=== PATIENT | female | born 1975 | race American Indian/Alaskan Native ===

== ENCOUNTER 2017-06-08 12:24 | Emergency (ER) | payer OTHER ==
[2017-06-08 12:51] VITALS: BP 137/98; PULSE 105; RESP 18; TEMP 97.9; O2SAT 100
--- NOTE | 2017-06-08 13:55 | C.PDOC ---
History Of Present Illness Patient is a 41 year old female, with no significant PMHx, presents to ED for evaluation of persistent vaginal bleeding for the past 5 months after receiving depo shot. Notes using 10 pads a day for the past several months. Pt states that bleeding stopped for 2 days last week, but returned again. Notes being seen by OBGYN several times in the past, who instructed pt to come to ER for further evaluation. Denies fever, n/v/d, chest pain, dyspnea, lightheadedness or any other complaints. Pt is requesting to be tested for STDs and HIV. Time Seen by Provider: 06/08/17 13:08 Chief Complaint (Nursing): Female Genitourinary History Per: Patient History/Exam Limitations: no limitations Onset/Duration Of Symptoms: Days Current Symptoms Are (Timing): Still Present Associated Symptoms: Back Pain. denies: Urinary Symptoms Alleviating Factors: None Recent travel outside of the [place]: No Additional History Per: Patient Abnormal Vaginal Bleeding: Yes Past Medical History Reviewed: Historical Data, Nursing Documentation, Vital Signs Vital Signs: Last Vital Signs Temp 97.9 F 06/08/17 12:50 Pulse 105 H 06/08/17 12:50 Resp 18 06/08/17 12:50 BP 137/98 H 06/08/17 12:50 Pulse Ox 100 06/08/17 14:06 Surgical History: Cholecystectomy Family History: States: Unknown Family Hx - Social History Hx Tobacco Use: Yes Hx Alcohol Use: No Hx Substance Use: No - Immunization History Hx Tetanus Toxoid Vaccination: No Hx Influenza Vaccination: No Hx Pneumococcal Vaccination: No Review Of Systems Except As Marked, All Systems Reviewed And Found Negative. Constitutional: Negative for: Fever, Chills Gastrointestinal: Negative for: Nausea, Vomiting, Abdominal Pain, Diarrhea Genitourinary: Positive for: Vaginal Bleeding. Negative for: Dysuria, Frequency Physical Exam - Physical Exam Additional Physical Exam Comments: Constitutional: No acute distress. Head: Normocephalic. Atraumatic. Eyes: PERRL. ENT: Moist mucous membranes. Neck: Supple. Cardiovascular: Regular rate. Radial pulse 2+ bilaterally. Chest: No tenderness. Respiratory: Clear to auscultation bilaterally. GI: Soft. Nontender. Nondistended. Back: No CVA tenderness. Musculoskeletal: No tenderness or swelling of extremities. Skin: No rash. Neurologic: Alert, no focal deficit. ED Course And Treatment O2 Sat by Pulse Oximetry: 100 (RA) Pulse Ox Interpretation: Normal Medical Decision Making Medical Decision Making: Plan: * Blood work * Urinalysis * Chlamydia/GC * Reassess Patient told ER staff member that she was leaving to go to work and walked out of the ED. Disposition - Disposition Disposition: ELOPEMENT - ER ONLY Disposition Time: 14:10 Condition: UNKNOWN Forms: [facility] (Latvian) - Clinical Impression Clinical Impression: Vaginal bleeding - Scribe Statement The provider has reviewed the documentation as recorded by the Scribe Kelly Dowd All medical record entries made by the Hillaryibbeatrice were at my direction and personally dictated by me. I have reviewed the chart and agree that the record accurately reflects my personal performance of the history, physical exam, medical decision making, and the department course for this patient. I have also personally directed, reviewed, and agree with the discharge instructions and disposition.
[2017-06-08 13:59] LABS: RBC URINE 109 /hpf (0-3); URINE BACTERIA OCC (<OCC); URINE BILIRUBIN NEGATIVE (NEGATIVE); URINE BLOOD 3+ (NEGATIVE); URINE COLOR Yellow (YELLOW); URINE GLUCOSE (UA) NORMAL (Normal); URINE KETONE NEGATIVE (NEGATIVE); URINE LEUKOCYTE ESTERASE NEG Leu/uL (Negative); URINE PROTEIN NEGATIVE (NEGATIVE); URINE UROBILINOGEN NORMAL mg/dL (0.2-1.0); WBC URINE 7 /hpf (0-5)
== END 2017-06-08 13:58 | disposition left against medical advice (07) ==
LOC: C.ER 12:24
DX: N93.9 Abnormal uterine and vaginal bleeding, unspecified (principal)

== ENCOUNTER 2017-06-09 15:39 | Emergency (ER) | payer OTHER ==
[2017-06-09 16:13] VITALS: BMI 33.3
[2017-06-09 16:16] VITALS: TEMP 98
[2017-06-09 16:17] VITALS: BP 118/80; PULSE 115; O2SAT 100
--- NOTE | 2017-06-09 17:48 | C.PDOC ---
History Of Present Illness 41 y/o female presents to ED with complaints of vaginal bleeding since last night. Notes that she was seen here last night for vaginal bleeding, but states bleeding still persists. Pt is requesting to be tested for HIV and STDs. Pt also complains of feet pain, admits to being evaluated by a replenishment analyst. Denies n /v/d, abdominal pain, or fever. Pt is requesting food, and juice. Time Seen by Provider: 06/09/17 17:19 Chief Complaint (Nursing): Lower Extremity Problem/Injury History Per: Patient History/Exam Limitations: no limitations Onset/Duration Of Symptoms: Days Current Symptoms Are (Timing): Still Present Recent travel outside of the [place]: No Additional History Per: Patient Past Medical History Reviewed: Historical Data, Nursing Documentation, Vital Signs Vital Signs: Last Vital Signs Temp 98 F 06/09/17 16:15 Pulse 115 H 06/09/17 16:15 Resp 18 06/09/17 16:15 BP 118/80 06/09/17 16:15 Pulse Ox 100 06/09/17 18:38 - Medical History PMH: HTN Surgical History: Cholecystectomy Family History: States: Unknown Family Hx - Social History Hx Tobacco Use: Yes Hx Alcohol Use: No Hx Substance Use: No - Immunization History Hx Tetanus Toxoid Vaccination: No Hx Influenza Vaccination: No Hx Pneumococcal Vaccination: No Review Of Systems Except As Marked, All Systems Reviewed And Found Negative. Constitutional: Negative for: Fever, Chills Gastrointestinal: Negative for: Nausea, Vomiting, Abdominal Pain, Diarrhea Genitourinary: Positive for: Vaginal Bleeding. Negative for: Dysuria, Frequency , Hematuria Musculoskeletal: Positive for: Foot Pain (b/l). Negative for: Back Pain Skin: Positive for: Other (callus) Neurological: Negative for: Weakness, Numbness Physical Exam - Physical Exam Appears: Non-toxic, No Acute Distress Skin: Normal Color, Warm, Dry Head: Atraumatic, Normacephalic Eye(s): bilateral: Normal Inspection Oral Mucosa: Moist Neck: Normal ROM, Supple Chest: Symmetrical Cardiovascular: Rhythm Regular, No Murmur Respiratory: Normal Breath Sounds, No Rales, No Rhonchi, No Wheezing Gastrointestinal/Abdominal: Soft, No Tenderness Back: Normal Inspection, No CVA Tenderness Extremity: Normal ROM, No Tenderness, No Pedal Edema, Capillary Refill (<2 secs. ), No Deformity, No Swelling, Other (2 calluses in b/l forefoot) Extremity: Bilateral: Painful To Bear Weight (callus plantar aspect both feet) Pulses: Left Dorsalis Pedis: Normal, Right Dorsalis Pedis: Normal Neurological/Psych: Oriented x3, Normal Speech, Normal Motor, Normal Sensation Gait: Steady ED Course And Treatment - Laboratory Results Result Diagrams: 06/09/17 17:58 06/09/17 17:58 Urine POC: Negative O2 Sat by Pulse Oximetry: 100 (RA) Pulse Ox Interpretation: Normal Progress Note: Blood work, UA, chlamydia/GC ordered and reviewed. Patient evaluated in ED yesterday for same problem. Patient eating at bedside requesting juice. On re-evaluation in no distress Reassessment Condition: Unchanged Disposition Counseled Patient/Family Regarding: Studies Performed, Diagnosis, Need For Followup, Rx Given - Disposition Referrals: Podiatry Clinic [Outside] [facility] [Outside] [facility] [Outside] Disposition: HOME/ ROUTINE Disposition Time: 18:40 Condition: STABLE Additional Instructions: Follow up with podiatry and LINING FOLDER for further evaluation Instructions: Foot Sprain (ED), Dysfunctional Uterine Bleeding (ED) Forms: [employer] (Khmer) - POA Present On Arrival: None - Clinical Impression Clinical Impression: Callus of foot, Vaginal bleeding - PA / SUPERVISOR [employer] / Resident Statement MD/DO has reviewed & agrees with the documentation as recorded. - Scribe Statement The provider has reviewed the documentation as recorded by the Hillaryibbeatrice Dowd All medical record entries made by the Hillaryibbeatrice were at my direction and personally dictated by me. I have reviewed the chart and agree that the record accurately reflects my personal performance of the history, physical exam, medical decision making, and the department course for this patient. I have also personally directed, reviewed, and agree with the discharge instructions and disposition.
[2017-06-09 18:07] LABS: BASO # 0.1 K/uL (0.0-0.2); BASO % 0.9 % (0.0-2.0); EOS # 0.2 K/uL (0.0-0.7); EOS % 3.4 % (0.0-4.0); HEMATOCRIT 38.2 % (34.0-47.0); LYMPH # 2.4 K/uL (1.0-4.3); LYMPH % 32.4 % (20.0-40.0); MEAN CELL VOLUME 79.4 fL (81.0-99.0); MEAN CORPUSCULAR HEMOGLOBIN 25.8 pg (27.0-31.0); MEAN CORPUSCULAR HGB CONC 32.5 g/dL (33.0-37.0); MEAN PLATELET VOLUME 9.7 fL (7.2-11.7); MONO # 0.6 K/uL (0.0-0.8); MONO % 7.8 % (0.0-10.0); NRBC % 0.1 % (0.0-2.0); RED CELL DISTRIBUTION WIDTH 15.4 % (11.5-14.5); WHITE BLOOD COUNT 7.3 K/uL (4.8-10.8)
[2017-06-09 18:15] LABS: CHLORIDE 101 mmol/L (98-107); POTASSIUM 3.4 mmol/L (3.6-5.2); SODIUM 139 mmol/L (132-148)
[2017-06-09 18:18] LABS: BLOOD UREA NITROGEN 13 mg/dL (7-17); CALCIUM 8.3 mg/dl (8.6-10.4); CARBON DIOXIDE 26 mmol/L (22-30); GFR AFRICAN-AMERICAN > 60; GLUCOSE,RANDOM 70 mg/dL (65-105)
[2017-06-09 19:27] VITALS: RESP 20
== END 2017-06-09 19:27 | disposition home or self-care (01) ==
LOC: C.ER 15:39
DX: L84 Corns and callosities (principal); N93.9 Abnormal uterine and vaginal bleeding, unspecified

== ENCOUNTER 2017-08-21 06:57 | Emergency (ER) | payer MEDICAID, OTHER ==
[2017-08-21 06:57] VITALS: BMI 28.5
[2017-08-21 07:02] VITALS: BP 144/81; PULSE 96; RESP 20; TEMP 98.6; O2SAT 97
== END 2017-08-21 07:00 | disposition left against medical advice (07) ==
LOC: C.ER 06:57
DX: Z00.8 Encounter for other general examination (principal); Z02.9 Encounter for administrative examinations, unspecified

== ENCOUNTER 2018-06-19 14:03 | Emergency (ER) | payer OTHER ==
[2018-06-19 14:36] VITALS: BMI 39.6
[2018-06-19 14:41] VITALS: BP 133/96; PULSE 91; RESP 18; TEMP 98; O2SAT 99
[2018-06-19] MEDS ORDERED: Lidocaine 5% Patch TD STA (15:11)
--- NOTE | 2018-06-19 15:20 | C.PDOC ---
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 Patient has not taken anything for pain and reports she underwent a fall around 3 months ago. Patient has not followed up with her PMD for symptoms and denies urinary/bowel incontinence, extremity numbness/weakness or tingling. Time Seen by Provider: 06/19/18 14:42 Chief Complaint (Nursing): Lower Extremity Problem/Injury History Per: Patient History/Exam Limitations: no limitations Onset/Duration Of Symptoms: Days Current Symptoms Are (Timing): Still Present Additional History Per: Patient Past Medical History Reviewed: Historical Data, Nursing Documentation, Vital Signs Vital Signs: Last Vital Signs Temp 98 F 06/19/18 14:36 Pulse 91 H 06/19/18 14:36 Resp 18 06/19/18 14:36 BP 133/96 H 06/19/18 14:36 Pulse Ox 99 06/19/18 14:36 - Medical History PMH: Asthma, Bipolar Disorder, HTN, Schizophrenia Denies: Diabetes, Hepatitis, HIV, Seizures, Sexually Transmitted Disease Surgical History: Cholecystectomy - [facility] MEDICATION MANAGEMENT (07/28/17) Family History: States: Unknown Family Hx - Social History Hx Tobacco Use: Yes Hx Alcohol Use: No Hx Substance Use: No - Immunization History Hx Tetanus Toxoid Vaccination: No Hx Influenza Vaccination: No Hx Pneumococcal Vaccination: No Review Of Systems Genitourinary: Negative for: Incontinence Musculoskeletal: Positive for: Back Pain (lower), Leg Pain (right), Foot Pain Neurological: Negative for: Weakness, Numbness Physical Exam - Physical Exam Appears: Non-toxic, No Acute Distress, Other (obese) Skin: Normal Color, Warm, Dry Head: Atraumatic, Normacephalic Eye(s): bilateral: Normal Inspection Oral Mucosa: Moist Neck: Supple Chest: Symmetrical, No Deformity, No Tenderness Cardiovascular: Rhythm Regular, No Murmur Respiratory: Normal Breath Sounds, No Rales, No Rhonchi, No Wheezing Back: No Vertebral Tenderness, Other (right lower lumbar tenderness ) Extremity: Normal ROM, Capillary Refill (less than 2 seconds ), Other (tender dime-sized corn calluses to the ball of foot, distal to 3rd toe bilaterally ) Neurological/Psych: Oriented x3, Normal Speech, Normal Cognition, Normal Motor, Normal Sensation Gait: Other (uncomfortable appearing gait) ED Course And Treatment O2 Sat by Pulse Oximetry: 99 (on RA) Pulse Ox Interpretation: Normal Progress Note: Tylenol PO, Toradol IM and Lidocaine TD administered. Medical Decision Making Medical Decision Making: pt with one month low back pain and bilateral foot pain; toradol given with markedly reduced pain. pt reports she made appt with pmd for tomorrow while sitting in ed. pt advised to f/u podiatry as well and pt and wt loss recommended. Disposition Counseled Patient/Family Regarding: Diagnosis, Need For Followup, Rx Given - Disposition Referrals: Phill Rosales MD [Staff Provider] - [facility] [Outside] Podiatry Clinic [Outside] Disposition: HOME/ ROUTINE Disposition Time: 15:52 Condition: IMPROVED Additional Instructions: Please take ibuprofen as prescribed. Follow up with primary care doctor tomorrow as scheduled. Also follow up with towel folder for calluses on feet. Recommend physical therapy and weight loss. Remove patch form back in 12 hours. 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 - Scribe Statement The provider has reviewed the documentation as recorded by the Scribe (Irena Dowd) All medical record entries made by the Scribe were at my direction and personally dictated by me. I have reviewed the chart and agree that the record accurately reflects my personal performance of the history, physical exam, medical decision making, and the department course for this patient. I have also personally directed, reviewed, and agree with the discharge instructions and disposition.
[2018-06-19] MEDS ORDERED: Lidocaine 5% Patch TD ONE (15:23)
== END 2018-06-19 16:01 | disposition home or self-care (01) ==
LOC: C.ER 14:03
DX: M54.5 Low back pain (principal); L84 Corns and callosities
CPT/HCPCS: 96372; 99284; J1885